=== PATIENT | male | born 1980 | race Caucasian/White ===

== ENCOUNTER 2021-12-18 21:46 | Emergency (ER) | payer SELFPAY ==
[2021-12-18] MEDS ORDERED: methylPREDNISolone Sod Succ/PF 125 MG/2 ML VIAL ONE (22:11)
== END 2021-12-18 22:31 | disposition home or self-care (01) ==
LOC: MADERS 21:46
DX: L23.7 Allergic contact dermatitis due to plants, except food (principal); F17.210 Nicotine dependence, cigarettes, uncomplicated
CPT/HCPCS: 96372; 99282; J2930

== ENCOUNTER 2022-02-18 16:57 | Emergency (ER) | payer SELFPAY ==
[2022-02-18] MEDS ORDERED: Ketorolac Tromethamine 30 MG/ML VIAL ONE (18:08)
== END 2022-02-18 18:27 | disposition home or self-care (01) ==
LOC: MADERS 16:57
DX: S90.31XA Contusion of right foot, initial encounter (principal); S90.01XA Contusion of right ankle, initial encounter; F17.210 Nicotine dependence, cigarettes, uncomplicated; W11.XXXA Fall on and from ladder, initial encounter
CPT/HCPCS: J1885

== ENCOUNTER 2024-01-11 21:44 | Emergency (ER) | payer OTHER ==
[2024-01-11] MEDS ORDERED: Lorazepam 1 MG TAB ONE (22:28)
[2024-01-11] MEDS ORDERED: Nicotine 7 MG PATCH ONE (22:42)
[2024-01-11 23:09] LABS: Amphetamine Not Detected (NotDetected); Barbiturates Screen Not Detected (NotDetected); Benzodiazepine Screen Not Detected (NotDetected); Cocaine Metabolite Screen Not Detected (NotDetected); Methadone Not Detected (NotDetected); Methamphetamine Not Detected (NotDetected); Opiate Screen Not Detected (NotDetected); Oxycodone Screen Not Detected (NotDetected); Phencyclidine (PCP) Not Detected (NotDetected); THC/Cannabinoid Screen Detected (NotDetected); Tricyclic Screen Not Detected (NotDetected)
[2024-01-12] MEDS ORDERED: Ibuprofen 800 MG TAB ONE (03:16)
[2024-01-12] MEDS ORDERED: Acetaminophen 500 MG TAB ONE (07:19)
[2024-01-12] MEDS ORDERED: Diazepam 5 MG TAB ONE (09:09)
[2024-01-12] MEDS ORDERED: Thiamine HCl 200 MG/2 ML VIAL ONE (13:49)
[2024-01-12] MEDS ORDERED: Diazepam 10 MG/2 ML SYRINGE ONE (13:50)
[2024-01-12] MEDS ORDERED: Lactated Ringer's 1,000 ML ONE ×2 (13:50→15:25)
[2024-01-12 14:10] LABS: ALT (SGPT) 42 U/L (8-55); AST (SGOT) 65 U/L (5-34); Albumin 5.2 g/dL (3.5-5.0); Alkaline Phosphatase 102 U/L (40-110); Anion Gap 22 mmol/L (10-20); BUN (Urea Nitrogen) 14 mg/dL (8.9-20.6); Bilirubin, Total 1.2 mg/dL (0.2-1.2); Calc. Creatinine Clearance 0 mL/min (70-130); Carbon Dioxide 18 mmol/L (22-29); Chloride 103 mmol/L (98-107); Estimated GFR 95; Globulin 3.9 g/dL (2.4-3.5); Glucose 121 mg/dL (70-105); Potassium 3.6 mmol/L (3.5-5.1); Protein, Total 9.1 g/dL (6.0-8.3); Sodium 139 mmol/L (136-145)
[2024-01-12 14:11] LABS: Troponin I Less than 0.010 ng/mL (< 0.028)
[2024-01-12 14:18] LABS: Band 9 % (5-11); Eosinophils 1 % (0-10); Hematocrit 52.3 % (42.0-52.0); Hemoglobin 16.9 g/dL (14.0-18.0); Lymphocytes 9 % (21-51); MDiff Complete? YES; Mean Corpuscular HGB CONC 32.3 g/dL (32.0-36.0); Mean Corpuscular Hemoglobin 31.3 pg (27.0-31.0); Mean Corpuscular Volume 96.9 fl (78.0-98.0); Monocytes 3 % (0-10); Neutrophil 78 % (42-75); Platelet Adequacy Comment Appears Adequate; Platelet Count 235 10x3/uL (130-400); RBC Distribution Width 11.9 % (11.5-14.5); White Blood Cell (WBC) Count 15.4 10x3/uL (4.8-10.8)
[2024-01-12 14:55] LABS: Chloride 105 mmol/L (98-107); Potassium 4.1 mmol/L (3.5-5.1)
[2024-01-12 15:27] LABS: Bicarbonate (HCO3v) 26.3 mmol/L (22.0-28.0); CO2 Tension (PvCO2) 42.8 mmHg (42.0-51.0); Hemoglobin - Calc 16.6 g/dL (14.0-18.0); Sodium 139 mmol/L (138-145); T. Carbon Dioxide 27.6 mmol/L (22.0-28.0); vO2 Saturation-calc 98.2 % (60.0-85.0)
[2024-01-12] MEDS ORDERED: Nicotine 7 MG PATCH ONE (15:40)
[2024-01-12 17:38] LABS: Bilirubin Negative (Negative); Blood, Urine Moderate (Negative); Glucose, Urine (Dipstick) Negative (Negative); Ketone, Urine Negative (Negative); Leukocyte Negative (Negative); Nitrite Negative (Negative); Protein, Urine (Dipstick) 100 mg/dL (Neg-Trace); Urobilinogen 0.2 mg/dL (Less than 2); pH, Urine 5.5 (5.0-9.0)
[2024-01-12 17:39] LABS: Clarity Hazy (Clear)
[2024-01-12 17:45] LABS: Bacteria/HPF Rare-Few HPF (None Seen); CAUTI Indications for Culture Pelvic or flank pain; RBC/HPF 0-3 HPF (0-3); Squamous Epithelial 0-3 HPF (0-3); Urine Culture Reflex No No; WBC/HPF 0-3 HPF (0-3)
== END 2024-01-12 17:00 | disposition short-term general hospital (02) ==
LOC: MADERS 21:44
DX: S20.219A Contusion of unspecified front wall of thorax, initial encounter (principal); F10.129 Alcohol abuse with intoxication, unspecified; F17.210 Nicotine dependence, cigarettes, uncomplicated; Y90.2 Blood alcohol level of 40-59 mg/100 ml; X50.9XXA Other and unspecified overexertion or strenuous movements or postures, initial encounter
CPT/HCPCS: 80053; 80306; 80307; 81001; 82330; 82803; 83605; 84484; 85025; 93005; 96374; 96375; J3360; J3411; J7120

== ENCOUNTER 2024-12-11 13:24 | Emergency (ER) | payer OTHER, SELFPAY ==
[2024-12-11] MEDS ORDERED: Dexamethasone 10 MG/ML VIAL ONE (13:56)
== END 2024-12-11 14:15 | disposition home or self-care (01) ==
LOC: MADERS 13:24
DX: L23.7 Allergic contact dermatitis due to plants, except food (principal); F17.210 Nicotine dependence, cigarettes, uncomplicated
CPT/HCPCS: 96372; 99282; J1100